=== PATIENT | female | born 1975 | race Caucasian/White ===

== ENCOUNTER 2017-01-03 20:43 | Emergency (ER) | payer SELFPAY ==
[~2017-01-03] VITALS: Ht 160 cm; Wt 57.6 kg
[2017-01-03 21:03] VITALS: BP 134/80
--- NOTE | 2017-01-04 00:05 | NUR ---
PATIENT LEFT WITHOUT BEING SEEN BY DR. Rocha. NO FURTHER CARE PROVIDED FOR PATIENT.
== END 2017-01-04 00:05 | disposition left against medical advice (07) ==
LOC: MED 20:43 → EEVIPCON 20:43 → MED 01-04 00:05
DX: R10.30 Lower abdominal pain, unspecified (principal); Z53.21 Procedure and treatment not carried out due to patient leaving prior to being seen by health care provider